=== PATIENT | female | born 2000 | race Caucasian/White ===

== ENCOUNTER 2019-02-09 00:41 | Emergency (ER) | payer SELFPAY ==
[2019-02-09] MEDS ORDERED: Ondansetron ODT 8 MG TAB ONE (02:29)
== END 2019-02-09 02:27 | disposition home or self-care (01) ==
LOC: ERS 00:41
DX: A87.9 Viral meningitis, unspecified (principal); B34.9 Viral infection, unspecified; I10 Essential (primary) hypertension
CPT/HCPCS: 99283